=== PATIENT | male | born 1975 | race Caucasian/White ===

== ENCOUNTER 2018-01-01 09:06 | Day surgery (SDC) | payer OTHER ==
[2018-01-01 09:55] VITALS: BMI 31.5
[2018-01-01] MEDS ORDERED: Lactated Ringer's 1,000 ML IV ONE (10:20)
[2018-01-01] MEDS ORDERED: Propofol 10 mg/ml Inj (20 ML) ONE ×3 (10:30→10:49)
[2018-01-01 10:36] LABS: BLOOD UREA NITROGEN 6 mg/dL (9-20); CALCIUM 9.4 mg/dl (8.6-10.4); GFR AFRICAN-AMERICAN > 60; GFR NON-AFRICAN AMERICAN > 60
[2018-01-01 11:25] VITALS: TEMP 98; O2SAT 100
[2018-01-01 11:52] VITALS: BP 159/100; PULSE 78; RESP 12
== END 2018-01-01 12:20 | disposition home or self-care (01) ==
LOC: C.ENDO 09:06
PROVIDERS: ATTEND Internal Medicine Gastroenterology
DX: D50.9 Iron deficiency anemia, unspecified (principal); Z80.0 Family history of malignant neoplasm of digestive organs; K57.30 Diverticulosis of large intestine without perforation or abscess without bleeding; Z98.84 Bariatric surgery status; D12.0 Benign neoplasm of cecum; K29.70 Gastritis, unspecified, without bleeding; K64.1 Second degree hemorrhoids; Z12.11 Encounter for screening for malignant neoplasm of colon
CPT/HCPCS: 36415; 43239; 45380; 80048; 82525; 88305; J2001; J2704; J7120

== ENCOUNTER 2018-07-23 08:34 | Day surgery (SDC) | payer OTHER ==
[2018-07-22 12:26] VITALS: BMI 32.3
[2018-07-23] MEDS ORDERED: Lactated Ringer's 500 ML IV SCH (10:15)
--- NOTE | 2018-07-23 10:19 | CP.SDSHP ---
Same Day Surgery H & P - History Proposed Procedure: EGD Pre-Op Diagnosis: vomiting, h/o anastomotic ulcer - Previous Medical/Surgical History Cardiac: Hypertension Comments: s/p gastric bypass - Allergies Allergies: Allergies No Known Allergies Allergy (Verified 07/23/18 08:53) - Physical Exam General Appearance: NAD Vital Signs: Vital Signs 07/23/18 08:45 Temperature 98.9 F Pulse Rate 88 Respiratory 20 Rate Blood Pressure 129/89 O2 Sat by Pulse 99 Oximetry Mental Status: Alert & Oriented x3 Neuro: WNL Heart: WNL Lungs: WNL GI: WNL - {Optional Preform as Required} Abdomen: WNL - Impression Pt. Evaluated Today:Candidate for Anesthesia & Procedure: Yes - Date & Time Date: 07/23/18 Time: 10:19 Short Stay Discharge - Short Stay Discharge Admitting Diagnosis/Reason for Visit: HX OF ULCER Disposition: HOME/ ROUTINE
[2018-07-23] MEDS ORDERED: Propofol 10 mg/ml Inj (20 ML) ONE ×2 (10:26→10:34)
[2018-07-23] MEDS ORDERED: Midazolam 2 MG/2 ML VIAL ONE (10:26)
[2018-07-23 12:00] VITALS: BP 109/76; PULSE 81; RESP 11; TEMP 97.8; O2SAT 97
== END 2018-07-23 11:35 | disposition home or self-care (01) ==
LOC: C.ENDO 08:34
PROVIDERS: ATTEND Internal Medicine Gastroenterology
DX: K29.70 Gastritis, unspecified, without bleeding (principal); Z87.11 Personal history of peptic ulcer disease; I10 Essential (primary) hypertension; Z98.84 Bariatric surgery status
CPT/HCPCS: 43235; J2250; J2704; J7120

== ENCOUNTER 2018-09-18 12:44 | Outpatient (CLI) | payer OTHER | END 2018-09-18 12:45 | disposition home or self-care (01) | LOC: C.LAB 12:44 | DX: R60.9 Edema, unspecified (principal) ==